=== PATIENT | male | born 1990 | race Caucasian/White ===

== ENCOUNTER 2020-06-19 19:08 | Emergency (ER) | payer SELFPAY ==
[2020-06-19] MEDS ORDERED: Proparacaine 0.5% Opth 15 ML BOT ONE (19:23)
[2020-06-19] MEDS ORDERED: Fluorescein Opthalmic Strip ONE (19:23)
== END 2020-06-19 19:45 | disposition home or self-care (01) ==
LOC: NAV ERS 19:08
DX: S05.02XA Injury of conjunctiva and corneal abrasion without foreign body, left eye, initial encounter (principal); W22.8XXA Striking against or struck by other objects, initial encounter
CPT/HCPCS: 99283